=== PATIENT | female | born 1950 | race Caucasian/White ===

== ENCOUNTER → 2017-05-10 | Outpatient (CLI) | payer OTHER, MEDICARE ==
[~2017-05-10] MED LIST: PRILOSEC OTC
--- NOTE | 2017-05-10 15:22 | MAMMOGRAPHY REPORT ---
BILATERAL DIGITAL SCREENING MAMMOGRAM WITH CAD: 05/10/2017 CLINICAL HISTORY: Routine screening. TECHNIQUE: Current study was also evaluated with a Computer Aided Detection (CAD) system. Bilateral CC and MLO views were obtained. COMPARISON: Comparison is made to exam dated: 03/16/2016 mammogram - [facility]. BREAST COMPOSITION: There are scattered areas of fibroglandular density in both breasts. FINDINGS: No suspicious masses, calcifications, or areas of architectural distortion are noted in ei ther breast. There has been no significant interval change compared to prior exams. IMPRESSION: ACR BI-RADS CATEGORY 1: NEGATIVE There is no mammographic evidence of malignancy. A 1 year screening mammogram is recommended. The pa tient will receive written notification of the results. Approximately 10% of breast cancers are not detected with mammography. A negative mammographic report should not delay biopsy if a clinically suggestive mass is present. Misti Carrasco M.D. ah/:05/10/2017 14:58:32 Transfer Man: Joyce STANLEY(R)(M), [facility] letter sent: Normal 1/2 BI-RADS Code: ACR BI-RADS Category 1: Negative
== END | disposition home or self-care (01) ==
LOC: C.MAMM 13:29
PROVIDERS: ATTEND Family Medicine
DX: Z12.31 Encounter for screening mammogram for malignant neoplasm of breast (principal)

== ENCOUNTER → 2018-02-12 | Outpatient (CLI) | payer OTHER, MEDICARE | END | disposition home or self-care (01) | LOC: C.PATHSPEC 17:22 | PROVIDERS: ATTEND Urology | DX: R31.29 Other microscopic hematuria (principal) ==

== ENCOUNTER → 2018-02-21 | Outpatient (CLI) | payer OTHER, MEDICARE ==
[2018-02-21 12:40] LABS: ALBUMIN 3.7 gm/dl (3.4-5.0); ALT/SGPT 22 U/L (12-78); BLOOD UREA NITROGEN 10 mg/dl (7-18); CALCIUM 8.9 mg/dl (8.5-10.1); CARBON DIOXIDE 28 mmol/L (21-32); CREATININE 0.74 mg/dl (0.60-1.20); GLUCOSE 98 mg/dl (70-99); POTASSIUM 3.8 mmol/L (3.5-5.1); SODIUM 140 mmol/L (136-145)
[2018-02-21 12:43] LABS: ALKALINE PHOSPHATASE 86 U/L (45-117); AST/SGOT 17 U/L (15-37)
== END | disposition home or self-care (01) ==
LOC: C.LABBFT 08:43
PROVIDERS: ATTEND Urology
DX: R31.29 Other microscopic hematuria (principal)

== ENCOUNTER → 2018-02-26 | Outpatient (CLI) | payer OTHER, MEDICARE ==
[~2018-02-26] MED LIST changes: +OPTIRAY 320 IV PRN
--- NOTE | 2018-02-26 09:11 | DIAGNOSTIC IMAGING REPORT ---
ABD/PELVIS COMBO HISTORY: 67 years-old Female R31.29 Hematuria, [id number] acute hematuria COMPARISON: CT abdomen and pelvis 05/31/2006 TECHNIQUE: Multiple axial CT images of the abdomen and pelvis were obtained both with and without the use of 120 mL Optiray 320 IV contrast utilizing hematuria protocol. A dose lowering technique was used consistent with the principals of MARK. FINDINGS: 2 mm solid nodule of the basal left lower lobe is noted, likely benign with additional 2 mm nodule seen on image 57 series 5. Pleural-based 4 mm nodule is noted within the lateral segment right middle lobe. There is no pneumatosis or pneumoperitoneum identified. Imaged inferior cardiac chambers are unremarkable. Prior cholecystectomy. Minimal intrahepatic biliary ductal dilation is likely secondary to postcholecystectomy state. Ovoid lesion with peripheral discontinuous enhancement involves the posterior right hepatic lobe measuring 2.7 x 1.8 cm on image 21 series 4, unchanged in size from comparison CT suggesting benign hepatic hemangioma. Additionally, there is a large lesion with peripheral discontinuous nodular enhancement and central low attenuation involving the hepatic dome measuring 3.2 x 3.0 cm on image 13 series 4 suggesting an additional hemangioma. This portion of the liver was not imaged on comparison CT study. Spleen, pancreas and right adrenal gland are unremarkable. There is thickening of the left adrenal gland which appears unchanged. There are at least five nonobstructing calculi on the left measuring up to 6 mm. Two nonobstructing calculi are seen within the posterior interpolar right kidney measuring up to 4 mm. No ureteral calculi or obstructive uropathy. No bladder calculi identified. 5 mm low attenuating lesion of the superior pole left kidney is too small to characterize however suggests renal cyst. Renal sinus cysts are also noted on the left measuring up to 12 mm. The delayed postcontrast images demonstrate no focal filling defects within the collecting systems or ureters. The distal left ureter is not well opacified. Bladder appears unremarkable. Postoperative changes from prior hysterectomy. No adnexal mass lesions identified. Moderate mixed plaquing of the aorta. No bulky adenopathy. No bowel obstruction or focal bowel wall thickening. Nondistention of the splenic flexure, descending and sigmoid colon. The appendix is surgically absent. Soft tissues are unremarkable. Multilevel advanced facet arthrosis. Dextroscoliosis of the lumbar spine. No compression deformity. IMPRESSION: 1. Bilateral nonobstructing nephrolithiasis without ureteral calculi or obstructive uropathy. 2. There are two right hepatic lobe lesions which demonstrate imaging characteristics suggesting hepatic hemangiomas. The posterior right hepatic lobe lesion is unchanged from 2009 and the hepatic dome lesion was not imaged on comparison study. 3. No bowel obstruction or focal bowel wall thickening. 4. Prior cholecystectomy, appendectomy and hysterectomy. The above report was generated using voice recognition software. It may contain grammatical, syntax or spelling errors. Electronically signed by: Esteban Zhang M.D. 02/26/2018 9:10 AM Dictated Date/Time: 02/26/2018 8:57 AM
== END | disposition home or self-care (01) ==
LOC: C.CTS 08:32
PROVIDERS: ATTEND Urology
DX: R31.29 Other microscopic hematuria (principal); N20.0 Calculus of kidney; K76.9 Liver disease, unspecified; Z90.49 Acquired absence of other specified parts of digestive tract; Z90.89 Acquired absence of other organs; Z90.710 Acquired absence of both cervix and uterus

== ENCOUNTER → 2018-04-01 | Day surgery (SDC) | payer OTHER, MEDICARE ==
[2018-03-19 08:39] VITALS: BMI 28.0
--- NOTE | 2018-03-19 09:46 | DIAGNOSTIC IMAGING REPORT ---
CHEST 2 VIEWS ROUTINE CLINICAL HISTORY: PAT preoperative evaluation COMPARISON STUDY: No previous studies for comparison. FINDINGS: The bones soft tissues and hemidiaphragms are normal. The cardiomediastinal silhouette is normal. The lungs are clear. The pulmonary vasculature is normal. IMPRESSION: Negative chest. The above report was generated using voice recognition software. It may contain grammatical, syntax or spelling errors. Electronically signed by: Den Cummins M.D. 03/19/2018 9:44 AM Dictated Date/Time: 03/19/2018 9:44 AM
[2018-03-19 11:06] LABS: BASO % 0.4 %; BASO ABS # 0.02 K/uL (0-0.2); EOS % 2.1 %; EOS ABS # 0.12 K/uL (0-0.5); HEMOGLOBIN 14.5 g/dL (12.0-16.0); IG# 0.01 K/uL (0.00-0.02); LYMPH % 36.8 %; LYMPH ABS # 2.07 K/uL (1.2-3.4); MEAN CELL VOLUME 90.5 fL (80-100); MEAN CORPUSCULAR HEMOGLOBIN 31.3 pg (25-34); MEAN CORPUSCULAR HGB CONC 34.5 g/dl (32-36); MEAN PLATELET VOLUME 11.1 fL (7.4-10.4); MONO % 5.3 %; NEUT % 55.2 %; NEUT ABS # 3.11 K/uL (1.4-6.5); PLATELET COUNT 197 K/uL (130-400); RED CELL DISTRIBUTION WIDTH CV 12.3 % (11.5-14.5); RED CELL DISTRIBUTION WIDTH SD 40.6 fL (36.4-46.3); WHITE BLOOD COUNT 5.63 K/uL (4.8-10.8)
[2018-03-19 11:13] LABS: CALCIUM 8.3 mg/dl (8.5-10.1); CREATININE 0.63 mg/dl (0.60-1.20); POTASSIUM 3.8 mmol/L (3.5-5.1)
[~2018-04-01] VITALS: Ht 160 cm; Wt 74.2 kg
[~2018-04-01] MED LIST changes: +ATROPINE SULFATE 0.1 MG/ML 5ML SYR IV PRN; +CEFAZOLIN 2000MG IV PUSH 15 ML IV SCH; +CIPR-255 PO; +DEXAMETHASONE SOD INJ 4 MG/ML VIAL ONE; +EpHEDrine SULFATE INJ 50 MG/ML AMP IV PRN; +FENTANYL CITRATE INJ 50 MCG/1 ML 2 ML VIAL IV PRN; +FENTANYL CITRATE INJ 50 MCG/1 ML 2 ML VIAL ONE; +HYDROmorphone INJ 0.5 MG/0.5 ML SYR IV PRN; +LABETALOL HCL IV 5 MG/ML 20ML IV PRN; +LABETALOL HCL IV 5 MG/ML 20ML ONE; +LACTATED RINGER'S 1000ML 1,000 ML IV SCH; +LIDOCAINE HCL 2% 2 ML VIAL (20MG/ML) ONE; +MIDAZOLAM HCL 1 MG/ML 2ML VIAL ONE; +MULT-506 PO; +ONDANSETRON INJ 2 MG/ML 2 ML VIAL IV PRN; +ONDANSETRON INJ 2 MG/ML 2 ML VIAL ONE; -OPTIRAY 320 IV PRN; +OXYC7.5T65 PO; +OXYCODONE/ACETAMINOPHEN 7.5-325 TAB PO PRN; +PHEN-775 PO; +PHENYLEPHRINE 100MCG/ML 5ML SYR IV PRN; -PRILOSEC OTC; +PROPOFOL IV EMULSION 10 MG/ML 20 ML VIAL ONE
--- NOTE | 2018-04-01 07:21 | History & Physical Bridge Note ---
H&P Re-Evaluation Bridge Note: I have examined the patient, reviewed the History & Physical and in the interval since the performance of the History & Physical I have noted the following changes of clinical significance: No changes noted
--- NOTE | 2018-04-01 07:26 | Discharge Instructions ---
Discharge Instructions Date of Service April 01, 2018. Admission Reason for Admission: Kidney Stones Discharge Discharge Diagnosis / Problem: Left Stone Discharge Goals Goal(s): Decrease discomfort, Improve function Activity Recommendations Activity Limitations: resume your previous activity Lifting Limitations: gradually increase as tolerated Exercise/Sports Limitations: gradually increase as tolerated Shower/Bathe: no limitations . Instructions / Follow-Up Instructions / Follow-Up May have blood in urine. May have pelvic discomfort. Call if any fevers or chills. Current Hospital Diet Patient's current hospital diet: Discharge Diet Recommended Diet: Regular Diet Procedures Procedures Performed: Cystscopy, Left URS and Laser lithotripsy Pending Studies Studies pending at discharge: no Medical Emergencies . Who to Call and When: Medical Emergencies: If at any time you feel your situation is an emergency, please call 911 immediately. . Non-Emergent Contact Non-Emergency issues call your: Primary Care Provider, Urologist Call Non-Emergent contact if: you have a fever, temperature is above 101, temperature is above 101.5, your pain is not controlled, your pain is worsening , your pain is unusual for you . . "Provider Documentation" section prepared by Armando Mcmahan. .
[2018-04-01 07:50] VITALS: BP 150/76; PULSE 59; TEMP 36.8; O2SAT 95; Ht 160 cm; Wt 74.2 kg
[2018-04-01] MEDS: Cysto-Conray II 17.2% 250ML BOTTLE ONE ×2 (10:04→11:15)
--- NOTE | 2018-04-01 11:17 | [facility] Operative Report ---
Operative Report Operative Date April 01, 2018. Pre-Operative Diagnosis Gross Hematuria, Stone Left Post-Operative Diagnosis Same Procedure(s) Performed Cystoscopy, Left Ureteroscopy, Laser Lithotripsy, Stone basket extraction, Retrograde, Stent Surgeon Martir Estimated Blood Loss Minimal Findings Multiple Left Stones Specimens Stone Fragment Drains 6 Fr Multilength Anesthesia Type General Complication(s) none Disposition Recovery Room / PACU Indications Gross hematuria with stones. Risks and benefits discussed. Description of Procedure Patient was consented and brought back to the operating room. Patient was placed under anesthesia in the supine position and moved to the dorsal lithotomy position. Patient was prepped and draped in the regular sterile fashion. A time out was completed. A 30degree Cystoscope was placed into the bladder and the entire bladder was examined. The UO's were identified. The UO was cannulized with a catheter and a retrograde pyelogram was completed. A wire was then placed. A ureteral access sheath and second safety wire was placed. The flexible ureteroscope was taken into the left ureter. The entire ureter and renal pelvis were examined. The stones were identified. A laser fiber was selected and the stones were pulverized to dust and small fragments. Larger fragments were grasped and removed and sent for analysis. The entire area was once again examined. No residual large fragments or areas of concern were noted. The scope was slowly removed with the wire left in place. Contrast was placed through the scope for a pyelogram to assist in stent placement. The entire ureter was examined as the scope was slowly removed. No obstructions or other areas of concern were noted. With the wire in place, it was backloaded onto the cystoscope, and a 6 Fr Double J stent was placed. It was confirmed with fluoroscopy. With the stent in place, the bladder was emptied. The scope was removed. The patient was cleaned, aroused from anesthesia, and transferred to the pacu in stable condition having tolerated the procedure well with no complications. I was present and participated in all aspects of the procedure. The patient will be monitored in the PACU until transferred. I attest to the content of the Intraoperative Record and any orders documented therein. Any exceptions are noted below.
--- NOTE | 2018-04-01 11:44 | DIAGNOSTIC IMAGING REPORT ---
RETROGRADE INCLUDES KUB CLINICAL HISTORY: LEFT LASER LITHO AND STENT PLACEMENT COMPARISON STUDY: CT of the abdomen and pelvis February 26, 2018. Fluoroscopy time: 3 minutes and 15 seconds. FINDINGS: 2 fluoroscopic images demonstrate a left ureteral stent which appears appropriately positioned. There is suspected left renal calculi. IMPRESSION: Fluoroscopic images demonstrating placement of a left ureteral stent. Electronically signed by: Josue Burr M.D. 04/01/2018 11:42 AM Dictated Date/Time: 04/01/2018 11:41 AM
[2018-04-01 12:17] VITALS: BP 145/69; PULSE 54; TEMP 36.5; O2SAT 97
--- NOTE | 2018-04-01 12:32 | Anesthesiology Progress Note ---
Anesthesia Post Op Note Date & Time April 01, 2018 at 12:31 Vital Signs Pain Intensity: 0 Vital Signs Past 12 Hours Date Time Temp Pulse Resp B/P (MAP) Pulse Ox O2 Delivery O2 Flow Rate FiO2 04/01/18 12:10 36.0 55 12 165/77 95 Room Air 04/01/18 12:00 53 15 170/80 95 Room Air 04/01/18 11:50 60 14 184/81 99 Oxymask 10 04/01/18 11:40 61 15 190/87 99 Oxymask 10 04/01/18 11:30 36.0 75 16 172/88 98 Oxymask 10 04/01/18 07:50 36.8 59 18 150/76 (100) 95 Room Air Notes Mental Status: alert / awake / arousable, participated in evaluation Pt Amnestic to Procedure: Yes Nausea / Vomiting: adequately controlled Pain: adequately controlled Airway Patency, RR, SpO2: stable & adequate BP & HR: stable & adequate Hydration State: stable & adequate Anesthetic Complications: no major complications apparent Pt doing well. BP better after 5mg of IV labetalol. VSS.
[2018-04-01 12:45] VITALS: BP 159/68; PULSE 57; O2SAT 95
[2018-04-01 13:15] VITALS: BP 165/74; PULSE 58; TEMP 36.4; O2SAT 98
== END | disposition home or self-care (01) ==
LOC: C.ACU 07:20
PROVIDERS: ATTEND Urology
DX: N20.0 Calculus of kidney (principal); R31.29 Other microscopic hematuria; Z85.828 Personal history of other malignant neoplasm of skin; Z90.89 Acquired absence of other organs

== ENCOUNTER → 2018-06-09 | Outpatient (CLI) | payer OTHER, MEDICARE ==
[~2018-06-09] MED LIST changes: -ATROPINE SULFATE 0.1 MG/ML 5ML SYR IV PRN; -CEFAZOLIN 2000MG IV PUSH 15 ML IV SCH; -DEXAMETHASONE SOD INJ 4 MG/ML VIAL ONE; -EpHEDrine SULFATE INJ 50 MG/ML AMP IV PRN; -FENTANYL CITRATE INJ 50 MCG/1 ML 2 ML VIAL IV PRN; -FENTANYL CITRATE INJ 50 MCG/1 ML 2 ML VIAL ONE; -HYDROmorphone INJ 0.5 MG/0.5 ML SYR IV PRN; -LABETALOL HCL IV 5 MG/ML 20ML IV PRN; -LABETALOL HCL IV 5 MG/ML 20ML ONE; -LACTATED RINGER'S 1000ML 1,000 ML IV SCH; -LIDOCAINE HCL 2% 2 ML VIAL (20MG/ML) ONE; -MIDAZOLAM HCL 1 MG/ML 2ML VIAL ONE; -ONDANSETRON INJ 2 MG/ML 2 ML VIAL IV PRN; -ONDANSETRON INJ 2 MG/ML 2 ML VIAL ONE; -OXYCODONE/ACETAMINOPHEN 7.5-325 TAB PO PRN; -PHEN-775 PO; -PHENYLEPHRINE 100MCG/ML 5ML SYR IV PRN; -PROPOFOL IV EMULSION 10 MG/ML 20 ML VIAL ONE
--- NOTE | 2018-06-09 09:08 | DIAGNOSTIC IMAGING REPORT ---
(STEPHON/BLAD)RETROPERITON COMP HISTORY: 67 years-old Female N20.0 [id number] follow-up study in a patient with history of nephrolithiasis COMPARISON: CT abdomen and pelvis 02/26/2018 TECHNIQUE: Multiple real-time sonogram images of the kidneys and bladder were obtained assessing grayscale appearance and color flow FINDINGS: The right kidney measures 12.3 cm in length. There are 2 calculi of the superior pole right kidney redemonstrated measuring up to 4 mm. No hydronephrosis or suspicious mass lesions on the right. Left kidney measures 12.0 cm in length. Left nephrolithiasis redemonstrated with calculi measuring up to 3 mm within the lower pole left kidney. No left-sided hydronephrosis or suspicious mass lesions identified. Urinary bladder is unremarkable with bilateral ureteral jets noted. IMPRESSION: 1. Bilateral nephrolithiasis without hydronephrosis. 2. Unremarkable sonographic appearance of the urinary bladder. The above report was generated using voice recognition software. It may contain grammatical, syntax or spelling errors. Electronically signed by: Esteban Zhang M.D. 06/09/2018 9:06 AM Dictated Date/Time: 06/09/2018 9:04 AM
== END | disposition home or self-care (01) ==
LOC: C.ULTR 08:28
PROVIDERS: ATTEND Urology
DX: N20.0 Calculus of kidney (principal); N13.30 Unspecified hydronephrosis